=== PATIENT | female | born 1955 | race Hispanic/Latino ===

== ENCOUNTER 2023-11-29 22:00 | Observation (INO) | payer OTHER, MEDICARE ==
[~2023-11-29] VITALS: Ht 154.9 cm; Wt 69.6 kg
[~2023-11-29 22:00] MED LIST: ASPI-1443 PO; ATOR40TA71 PO; BUSP7.5T7 PO; CEFU500T67 PO; CLOP75TA32 PO; DOXY100T2 PO; FURO20TA4 PO; LISI5TAB21 PO; METO-391 PO; NITR0.3T11 SL
[2023-11-29] MEDS: ASPIRIN 81MG CHEW TAB PO ONE (22:33)
[2023-11-29] MEDS: ATORVASTATIN 40 MG TABLET PO ONE (22:34)
[2023-11-29] MEDS: NITROGLYCERIN 0.4 MG SL TAB SL PRN (22:34)
[2023-11-29 22:38] LABS: BASOPHILS # (AUTO) 0.04 K/uL (0.00-0.20); BASOPHILS % (AUTO) 0.3 % (0.0-5.0); EOSINOPHILS # (AUTO) 0.23 K/uL (0.00-0.70); EOSINOPHILS % (AUTO) 1.8 % (0.0-8.0); IMMATURE GRANULOCYTE ABSOLUTE 0.05 K/uL (0-1); LYMPHOCYTES # (AUTO) 3.3 K/uL (1.0-4.8); LYMPHOCYTES % (AUTO) 25.6 % (21.0-51.0); MEAN CORPUSCULAR HEMOGLOBIN 29.7 pg (27.0-33.0); MEAN CORPUSCULAR HGB CONC 33.3 g/dL (32.0-36.0); MEAN CORPUSCULAR VOLUME 89.2 fL (79-99); MONOCYTES # (AUTO) 0.8 K/uL (0.1-1.0); MONOCYTES % (AUTO) 5.9 % (3.0-13.0); NEUTROPHILS # (AUTO) 8.6 K/uL (1.8-7.7); PLATELET COUNT (AUTO) 363 K/uL (130-400); RED BLOOD CELL COUNT(AUTO) 4.37 MIL/uL (4.00-5.50); RED CELL DISTRIBUTION WIDTH 14.1 % (11.0-15.5)
[2023-11-29 22:41] LABS: CREATININE 1.2 mg/dL (0.5-1.0); POTASSIUM 3.8 mmol/L (3.5-5.1)
[2023-11-29 22:48] LABS: INR <= 0.93 (0.85-1.15); PROTHROMBIN TIME 9.9 SEC (9.6-11.6)
[2023-11-29 22:51] LABS: ALBUMIN 3.8 g/dL (3.5-5.0); BILIRUBIN,TOTAL 0.3 mg/dL (0.2-1.0); TOTAL PROTEIN, SERUM 7.8 g/dL (6.0-8.3)
[2023-11-29 23:01] LABS: B-TYPE NATRIURETIC PEPTIDE 91 pg/mL (0-100)
[2023-11-29 23:19] LABS: PARTIAL THROMBOPLASTIN TIME < 20.0 SEC (26.3-35.5)
[2023-11-30] VITALS (9 sets, daily range): BP systolic 116–157; BP diastolic 66–84; PULSE 66–79; RESP 18–20; O2SAT 99
[2023-11-30] MEDS ORDERED: HYDRALAZINE 20MG/ML VIAL IV PRN (02:30)
[2023-11-30] MEDS ORDERED: ACETAMINOPHEN 325 MG TAB PO PRN ×2 (02:30)
[2023-11-30] MEDS ORDERED: ONDANSETRON 4MG INJ IV PRN (02:30)
[2023-11-30] MEDS: 0.9%NACL 1000ML 1,000 ML IV SCH (02:56)
[2023-11-30 04:41] LABS: BASOPHILS # (AUTO) 0.05 K/uL (0.00-0.20); BASOPHILS % (AUTO) 0.4 % (0.0-5.0); EOSINOPHILS # (AUTO) 0.31 K/uL (0.00-0.70); EOSINOPHILS % (AUTO) 2.6 % (0.0-8.0); HEMATOCRIT 39.5 % (36-48); IMMATURE GRANULOCYTE ABSOLUTE 0.03 K/uL (0-1); LYMPHOCYTES # (AUTO) 4.2 K/uL (1.0-4.8); LYMPHOCYTES % (AUTO) 34.3 % (21.0-51.0); MEAN CORPUSCULAR HEMOGLOBIN 30.4 pg (27.0-33.0); MEAN CORPUSCULAR HGB CONC 33.2 g/dL (32.0-36.0); MEAN CORPUSCULAR VOLUME 91.6 fL (79-99); MONOCYTES # (AUTO) 0.9 K/uL (0.1-1.0); MONOCYTES % (AUTO) 7.1 % (3.0-13.0); NEUTROPHILS # (AUTO) 6.7 K/uL (1.8-7.7); NEUTROPHILS % (AUTO) 55.4 % (40.0-77.0); PLATELET COUNT (AUTO) 358 K/uL (130-400); RED BLOOD CELL COUNT(AUTO) 4.31 MIL/uL (4.00-5.50); WHITE BLOOD COUNT (AUTO) 12.1 K/uL (4.8-10.8)
[2023-11-30 05:02] LABS: HEMOGLOBIN A1C 5.7 % (4.0-6.0)
[2023-11-30 05:04] LABS: ALBUMIN 3.6 g/dL (3.5-5.0); BILIRUBIN,TOTAL 0.4 mg/dL (0.2-1.0); CREATININE 0.9 mg/dL (0.5-1.0); MAGNESIUM 2.3 mg/dL (1.80-2.40); THYROID STIMULATING HORMONE 3.13 uIU/mL (0.36-3.74); TOTAL PROTEIN, SERUM 7.3 g/dL (6.0-8.3)
[2023-11-30] MEDS: NITROGLYCERIN 0.4 MG SL TAB SL PRN (05:24)
[2023-11-30] MEDS: KETOROLAC 15MG/ML VIAL (15MG/ML) IV PRN (05:42)
[2023-11-30 06:32] LABS: ERYTHROCYTE SEDIMENTATION RATE 12 MM/HR (0-30)
[2023-11-30] MEDS: METOPROLOL SUCCINATE 50 MG TAB.SR.24H PO SCH (08:38)
[2023-11-30] MEDS: FAMOTIDINE 20MG TAB PO SCH (08:38)
[2023-11-30] MEDS: ASPIRIN 81 MG EC TAB PO SCH (08:39)
[2023-11-30] MEDS ORDERED: ASPIRIN 81 MG EC TAB PO SCH (09:00)
[2023-11-30] MEDS ORDERED: PANT40TA55 PO (11:39)
[2023-11-30] MEDS ORDERED: CLOPIDOGREL 75MG TAB PO SCH (21:00)
[2023-11-30] MEDS ORDERED: ATORVASTATIN 40 MG TABLET PO SCH (21:00)
== END 2023-11-30 12:20 | disposition home or self-care (01) ==
LOC: EDH 22:00 → EDHIP 11-30 02:29 → 4AH 11-30 03:17
PROVIDERS: ADMIT Internal Medicine; ATTEND Internal Medicine
DX: I10 Essential (primary) hypertension (principal); N17.9 Acute kidney failure, unspecified; I25.709 Atherosclerosis of coronary artery bypass graft(s), unspecified, with unspecified angina pectoris; E78.5 Hyperlipidemia, unspecified; E11.9 Type 2 diabetes mellitus without complications; Z95.1 Presence of aortocoronary bypass graft; Z79.899 Other long term (current) drug therapy; Z98.890 Other specified postprocedural states
CPT/HCPCS: 82550; 84484 ×4; 80053 ×2; 83880; 85025 ×2; 85610; 85730; 71045; 93005; 96374; 96361 ×2; 99285; 83036; 84443; 83735; 80061; 85651; 86140; 36415; G0378 ×10; J1885

== ENCOUNTER 2024-01-24 12:32 | Emergency (ER) | payer OTHER, MEDICARE ==
[~2024-01-24] VITALS: Ht 152.4 cm; Wt 68.0 kg
[~2024-01-24 12:32] MED LIST changes: -CEFU500T67 PO; -DOXY100T2 PO; +PANT40TA55 PO
[2024-01-24 13:07] LABS: BASOPHILS # (AUTO) 0.04 K/uL (0.00-0.20); BASOPHILS % (AUTO) 0.4 % (0.0-5.0); EOSINOPHILS # (AUTO) 0.22 K/uL (0.00-0.70); HEMATOCRIT 38.2 % (36-48); IMMATURE GRANULOCYTE ABSOLUTE 0.04 K/uL (0-1); LYMPHOCYTES # (AUTO) 2.3 K/uL (1.0-4.8); MEAN CORPUSCULAR HEMOGLOBIN 29.3 pg (27.0-33.0); MEAN CORPUSCULAR HGB CONC 33.2 g/dL (32.0-36.0); MONOCYTES # (AUTO) 0.9 K/uL (0.1-1.0); NEUTROPHILS # (AUTO) 7.5 K/uL (1.8-7.7); NEUTROPHILS % (AUTO) 68.2 % (40.0-77.0); PLATELET COUNT (AUTO) 391 K/uL (130-400); RED BLOOD CELL COUNT(AUTO) 4.34 MIL/uL (4.00-5.50); RED CELL DISTRIBUTION WIDTH 13.5 % (11.0-15.5); WHITE BLOOD COUNT (AUTO) 10.9 K/uL (4.8-10.8)
[2024-01-24 13:14] LABS: CREATININE 0.9 mg/dL (0.5-1.0); POTASSIUM 3.6 mmol/L (3.5-5.1)
[2024-01-24 13:30] LABS: B-TYPE NATRIURETIC PEPTIDE 200 pg/mL (0-100)
[2024-01-24 15:04] VITALS: BP 153/65; PULSE 74; RESP 12; O2SAT 97
== END 2024-01-24 15:26 | disposition home or self-care (01) ==
LOC: EDH 12:32
DX: R07.89 Other chest pain (principal); I10 Essential (primary) hypertension; F32.A Depression, unspecified; Z95.1 Presence of aortocoronary bypass graft; Z79.899 Other long term (current) drug therapy; Z79.82 Long term (current) use of aspirin
CPT/HCPCS: 36415; 71045; 80048; 82550; 83880; 84484; 85025; 93005

== ENCOUNTER 2024-04-29 11:34 | Emergency (ER) | payer OTHER, MEDICARE ==
[~2024-04-29] VITALS: Ht 154.9 cm; Wt 65.8 kg
[2024-04-29] MEDS: methoCARBamol 500 MG TABLET PO STA (13:29)
[2024-04-29 15:09] VITALS: BP 113/51; PULSE 68; RESP 18; TEMP 98.6; O2SAT 98
== END 2024-04-29 15:20 | disposition home or self-care (01) ==
LOC: EDH 11:34
DX: M54.2 Cervicalgia (principal); F03.90 Unspecified dementia, unspecified severity, without behavioral disturbance, psychotic disturbance, mood disturbance, and anxiety; I10 Essential (primary) hypertension; Z79.02 Long term (current) use of antithrombotics/antiplatelets; Z79.82 Long term (current) use of aspirin; Z79.899 Other long term (current) drug therapy; Z95.1 Presence of aortocoronary bypass graft; V89.2XXA Person injured in unspecified motor-vehicle accident, traffic, initial encounter; Y93.89 Activity, other specified; Y92.89 Other specified places as the place of occurrence of the external cause; Y99.8 Other external cause status
CPT/HCPCS: 72040